=== PATIENT | male | born 2000 | race Caucasian/White ===

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

== ENCOUNTER 2022-09-12 06:57 | Emergency (ER) | payer MEDICAID, OTHER ==
--- NOTE | 2022-09-12 07:21 | ED Physician Documentation ---
PD HPI HEADACHE - Stated complaint Stated Complaint: RT HEAD PX/ - Chief complaint Chief Complaint: Neuro - History obtained from History obtained from: Patient - History of Present Illness Timing - onset: How many days ago (5) Timing - onset during: Light activity Timing - duration: Days (5) Timing - details: Gradual onset (onset while on computer right headache that worsened and lasted badly for 1-2 days, then eased, but has continued with "pokey" feeling right temporal area often.), Still present Worst headache ever?: No: Worst headache ever? Location: Right Quality: Aching, Stabbing Associated symptoms: Nausea. No: Fever, Stiff neck, Vomiting, Eye pain, Vision changes Improved by: No: Rest, Meds Worsened by: No: Light, Noise Contributing factors: No: Possible carbon monoxide, Recent illness, Trauma Similar symptoms before: Diagnosis (has had a few headaches in the past felt to be migraines. They go after few hours and sleep/some otC meds. Current one started similar but then persisted in a jabbing manner right temporal area. No rash, no sensitivity, no focal weakness nor trouble speaking.) Recently seen: Not recently seen Review of Systems Constitutional: denies: Fever, Chills Eyes: denies: Loss of vision, Decreased vision, Photophobia Ears: denies: Ear pain Nose: denies: Rhinorrhea / runny nose, Congestion, Sinus pressure / pain Throat: denies: Sore throat Respiratory: denies: Cough Skin: denies: Rash, Lesions Neurologic: reports: Headache. denies: Focal weakness, Numbness, Near syncope, Confused, Altered mental status PD PAST MEDICAL HISTORY - Past Medical History Cardiovascular: None Neuro: Migraines - Past Surgical History Past Surgical History: No - Present Medications Home Medications: Ambulatory Orders Medication Instructions Recorded Confirmed HYDROcod/ACETAM 5/325 [[place] 5/325] 1 ea PO Q6H PRN #12 tablet 09/12/22 HYDROcod/ACETAM 5/325 [[place] 5/325] 1 ea PO Q6H PRN #15 tablet 09/12/22 Ondansetron Odt [Zofran] 4 mg TL Q6H PRN #10 tablet 09/12/22 dexAMETHasone [Decadron] 4 mg PO DAILY #5 tablet 09/12/22 - Allergies Allergies/Adverse Reactions: Allergies Allergy/AdvReac Type Severity Reaction Status Date / Time No Known Drug Allergies Allergy Verified 09/12/22 07:12 - Social History Does the pt smoke?: No Smoking Status: Never smoker - Immunizations Immunizations are current?: Yes PD ED PE NORMAL - Vitals Vital signs reviewed: Yes - General General: Alert and oriented X 3, No acute distress, Well developed/nourished - HEENT HEENT: Atraumatic, PERRL, EOMI - Neck Neck: Supple, no meningeal sign, No adenopathy - Cardiac Cardiac: RRR, No murmur - Respiratory Respiratory: Clear bilaterally - Derm Derm: Normal color, Warm and dry - Neuro Neuro: Alert and oriented X 3, 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, No motor deficit, No sensory deficit, Normal speech, Other (normal gait) Results - Vitals Vitals: Vital Signs - 24 hr 09/12/22 09/12/22 07:06 09:11 Temperature 36.7 C Heart Rate 85 71 Respiratory 14 15 Rate Blood Pressure 129/77 132/83 H O2 Saturation 98 100 Oxygen O2 Source Room air - Rads (name of study) head cT Relevant Findings:: Prelim report reviewed (no acute findings), EMP independent interpretation of test, See rad report PD Medical Decision Making - ED course Complexity details: reviewed results, considered differential, d/w patient ED course: His pattern is not classic migraine but is one sided and without neuro deficit. However is prolonged and so shared decision is to get imaging cT. Does not seem meningitic and so considered but did not feel indicated a lumbar puncture. Labs did not seem useful with current history and exam. Given Toradol and Zofran for now as he is driving home. He has been hydrating so I did not feel iV fluids needed. He did have moderate improvement in symptoms. He is comfortable going home with scripts and follow up if not improved in 1-2 days. Dose of Decadron given for status migraine to try to keep it diminishing. Departure - Departure Disposition: 01 Home, Self Care Clinical Impression: Right-sided headache Condition: Stable Record reviewed to determine appropriate education?: Yes Instructions: ED Cephalgia Unspecified Prescriptions: dexAMETHasone [Decadron] 4 mg PO DAILY #5 tablet HYDROcod/ACETAM 5/325 [[place] 5/325] 1 ea PO Q6H PRN #12 tablet PRN Reason: Pain HYDROcod/ACETAM 5/325 [[place] 5/325] 1 ea PO Q6H PRN #15 tablet PRN Reason: Pain Ondansetron Odt [Zofran] 4 mg TL Q6H PRN #10 tablet PRN Reason: Nausea / Vomiting Comments: Your CT scan is normal without any signs of obvious structural abnormalities such as bleeding, swelling, tumors and your sinuses appear normal. At this point we will presume it is a functional headache such as a migraine that was persistent (status migraine). Hopefully the combination of the steroid along with some other pain medicine will decrease his through the day and have it better. Recheck if not improved completely over the next 1 to 2 days and return sooner if worsening. Ondansetron if needed for nausea. Continue the Decadron steroid for the next several days. Add Tylenol every 4-6 hours if needed for pain or hydrocodone if needed for worse pain. I sent your prescriptions to the [facility] pharmacy here in [place]. Apologize for the delay in getting your discharge as another patient came in that took my attention for a little bit. My narcotic instructions I am prescribing a short course of narcotic pain medication for you. These are potentially dangerous and addictive medications that should be used carefully. These medications may constipate you. Take an [id number] stool softener such as docusate twice daily with plenty of water while taking these medications. If you go 24 hours without a bowel movement, take [id number] MiraLAX, per package instructions. Do not drink or drive while taking these medications. If you received narcotic or sedating medications while in the emergency department do not drive for 24 hours. Store this medication in a safe, secure place and out of reach of children. It is a violation of federal law to give or sell this medication to another person or to use in a manner other than prescribed. The ED will not refill narcotic prescriptions, including prescriptions lost or stolen. You can dispose of unwanted medications at the [facility]'s office or at several pharmacies such as [facility]. Discharge Date/Time: 09/12/22 09:24
[2022-09-12] MEDS ORDERED: ACETAMINOPHEN 325 MG TABLET PO STA (07:44)
[2022-09-12] MEDS ORDERED: ONDANSETRON ODT 4 MG TABLET TL STA (07:45)
[2022-09-12] MEDS ORDERED: CHERRY SYRUP 10 ML UDC PO ONE (07:45)
[2022-09-12] MEDS ORDERED: DEXAMETHASONE 10 MG/ML VIAL PO STA (07:45)
--- NOTE | 2022-09-12 08:16 | CT Report ---
PROCEDURE: HEAD WO INDICATIONS: right sided AGUAYO for 5 days TECHNIQUE: Noncontrast 4.5 mm thick angled axial sections acquired from the foramen magnum to the vertex. For r adiation dose reduction, the following was used: automated exposure control, adjustment of mA and/or kV according to patient size. COMPARISON: None. FINDINGS: Image quality: Excellent. CSF spaces: Basal cisterns are patent. No extra-axial fluid collections. Ventricles are normal in size and shape. Brain: No midline shift. No intracranial masses or hemorrhage. Ace-white matter interface is norm al. Skull and face: Calvarium and visualized facial bones are intact, without suspicious lesions. Sinuses: Visualized sinuses and mastoids are clear. IMPRESSION: CT head without acute intracranial abnormalities or acute calvarial fractures. No eviden ce for mass or mass effect. Reviewed by: Junito Guerrero MD on 09/12/2022 8:14 AM PDT Approved by: Junito Guerrero MD on 09/12/2022 8:14 AM PDT Station ID: [id number]
[2022-09-12 09:23] VITALS: BP 132/83
== END 2022-09-12 09:24 | disposition home or self-care (01) ==
LOC: ED 06:57
DX: R51.9 Headache, unspecified (principal)
CPT/HCPCS: 70450; 99283; 99284; A9270; Q0162

== ENCOUNTER 2022-09-15 19:28 | Emergency (ER) | payer MEDICAID ==
--- NOTE | 2022-09-15 21:59 | ED Physician Documentation ---
PD HPI CHEST PAIN - Stated complaint Stated Complaint: TIGHT CHEST, IRREG HB - Chief complaint Chief Complaint: Cardiac - History obtained from History obtained from: Patient - History of Present Illness Recently seen: Emergency Dept - Additional information Additional information: HPI from patient. Patient complains of 2 days of episodic rapid palpitations. Initially, he felt that the palpitations were temporally related to a dose of Vicodin he had taken, but his last dose of Vicodin was 2 days ago (the day of onset of palpitations), but he has had more episodes of palpitations both yesterday and today. He says he has had some lightheadedness with the sensation of palpitations. This afternoon, he says he was at rest when he felt the rapid palpitations again start, his mother then applied apple watch to patient's wrist and noted heart rate was 130. Patient was treated and released from this emergency department 3 days ago for right retro-orbital headache, discharged after CT head was performed with unremarkable results. He was prescribed Decadron, Vicodin, and Zofran. Review of Systems Constitutional: denies: Fever Cardiac: reports: Palpitations. denies: Chest pain / pressure, Pedal edema, Calf pain Respiratory: reports: Reviewed and negative GI: reports: Reviewed and negative Neurologic: denies: Headache PD PAST MEDICAL HISTORY - Past Medical History Cardiovascular: None Neuro: Migraines Psych: Anxiety - Past Surgical History Past Surgical History: No - Present Medications Home Medications: Ambulatory Orders Medication Instructions Recorded Confirmed HYDROcod/ACETAM 5/325 [[place] 5/325] 1 ea PO Q6H PRN #12 tablet 09/12/22 HYDROcod/ACETAM 5/325 [[place] 5/325] 1 ea PO Q6H PRN #15 tablet 09/12/22 Ondansetron Odt [Zofran] 4 mg TL Q6H PRN #10 tablet 09/12/22 dexAMETHasone [Decadron] 4 mg PO DAILY #5 tablet 09/12/22 - Allergies Allergies/Adverse Reactions: Allergies Allergy/AdvReac Type Severity Reaction Status Date / Time No Known Drug Allergies Allergy Verified 09/15/22 19:58 - Social History Does the pt smoke?: No Smoking Status: Never smoker Does the pt drink ETOH?: No Does the pt have substance abuse?: No - Immunizations Immunizations are current?: Yes - POLST Patient has POLST: No PD ED PE NORMAL - Vitals Vital signs reviewed: Yes - General General: Alert and oriented X 3, No acute distress, Well developed/nourished - Cardiac Cardiac: RRR, No murmur, No gallop, No rub - Respiratory Respiratory: No respiratory distress, Clear bilaterally Results - Vitals Vitals: Vital Signs - 24 hr 09/15/22 09/15/22 19:58 23:18 Temperature 36.5 C Heart Rate 96 68 Respiratory 16 18 Rate Blood Pressure 137/100 H 121/81 H O2 Saturation 96 96 Oxygen O2 Source Room air - Labs Labs: Laboratory Tests 09/15/22 09/15/22 22:23 22:23 WBC 14.5 H RBC 5.17 Hgb 15.5 Hct 46.3 MCV 89.6 MCH 30.0 MCHC 33.5 RDW 11.8 L Plt Count 322 MPV 9.9 Neut # (Auto) 8.9 H Lymph # (Auto) 4.2 H [place] # (Auto) 1.2 H Eos # (Auto) 0.1 Baso # (Auto) 0.0 Absolute Nucleated RBC 0.00 Nucleated RBC % 0.0 Sodium 137 Potassium 3.3 L Chloride 100 L Carbon Dioxide 25 Anion Gap 12.0 BUN 19 Creatinine 0.7 Estimated GFR (MDRD) 144 Glucose 91 Calcium 9.7 PD Medical Decision Making - ED course Complexity details: reviewed old records (Reviewed CT head results from previous, recent ED visit.), reviewed results, re-evaluated patient, considered differential, d/w patient ED course: Patient did not have any dysrhythmia during ED visit while on the hospital monitor (I reviewed the telemetry metric recording prior to discharge).There were no diagnostic nor concerning findings on CBC, basic metabolic profile. He has a mildly elevated white blood cell count which is not a concerning nor contributory finding for this patient's chief complaint, HPI, and physical exam. He has mild hypokalemia with a potassium of 3.3. This is not low enough to realistically be a causative factor although could be contributory to paroxysmal dysrhythmias; he is given 20 mill equivalents of potassium chloride orally prior to discharge. Results were discussed with the patient, return precautions reviewed. Advised him to follow-up with his primary care provider for reevaluation. Departure - Departure Disposition: 01 Home, Self Care Clinical Impression: Palpitations, Hypokalemia Condition: Good Instructions: ED Potassium Deficiency, ED Palpitations Comments: There were no concerning or diagnostic findings on your blood test tonight. As we discussed, you had a mildly elevated white blood cell count which is a nonspecific finding and, in the setting of your symptoms, is an incidental finding. Your potassium level was a little bit below the normal range (your potassium level was 3.3, the low end of normal is 3.5). While a low potassium can cause cardiac symptoms including palpitations, it is unlikely that this caused your palpitations, as it is not low enough to realistically attribute symptoms to. You were given a dose of potassium orally prior to discharge. As we discussed, you should follow-up with a general practitioner for reevaluation of your symptoms, possible referrals for your symptoms, and your primary care provider might recommend repeating the potassium level to check that it has normalized. Discharge Date/Time: 09/15/22 23:27
[2022-09-15 22:30] LABS: BASOPHILS % (AUTO) 0.3 %; EOSINOPHILS # (AUTO) 0.1 10^3/uL (0.0-0.7); EOSINOPHILS % (AUTO) 0.7 %; HCT - HEMATOCRIT 46.3 % (42.0-52.0); HGB - HEMOGLOBIN 15.5 g/dL (14.0-18.0); LYMPHOCYTES # (AUTO) 4.2 10^3/uL (1.5-3.5); MEAN CORPUSCULAR HGB CONC 33.5 g/dL (32.0-36.0); MEAN CORPUSCULAR VOLUME 89.6 fL (80.0-94.0); MEAN PLATELET VOLUME 9.9 fL (7.4-11.4); MONOCYTES # (AUTO) 1.2 10^3/uL (0.0-1.0); MONOCYTES % (AUTO) 8.4 %; NEUTROPHILS # (AUTO) 8.9 10^3/uL (1.5-6.6); NEUTROPHILS % (AUTO) 61.1 %; PLT - PLATELET COUNT 322 10^3/uL (130-450); RED BLOOD COUNT 5.17 10^6/uL (4.70-6.10); RED CELL DISTRIBUTION WIDTH 11.8 % (12.0-15.0); WHITE BLOOD COUNT 14.5 x10^3/uL (4.8-10.8)
[2022-09-15 22:41] LABS: CALCIUM 9.7 mg/dL (8.5-10.3); CREATININE 0.7 mg/dL (0.6-1.2); POTASSIUM 3.3 mmol/L (3.5-5.0)
[2022-09-15 23:19] VITALS: BP 121/81
[2022-09-15] MEDS ORDERED: POTASSIUM CHLORIDE 20 MEQ TABLET PO STA (23:19)
== END 2022-09-15 23:27 | disposition home or self-care (01) ==
LOC: ED 19:28
DX: R00.2 Palpitations (principal); E87.6 Hypokalemia
CPT/HCPCS: 36415; 80048; 85025; 93005; 99284; A9270

== ENCOUNTER 2022-09-19 10:25 | Outpatient (CLI) | payer MEDICAID ==
[2022-09-19 10:44] LABS: BASOPHILS # (AUTO) 0.1 10^3/uL (0.0-0.1); BASOPHILS % (AUTO) 0.8 %; EOSINOPHILS # (AUTO) 0.3 10^3/uL (0.0-0.7); EOSINOPHILS % (AUTO) 2.5 %; HCT - HEMATOCRIT 43.1 % (42.0-52.0); HGB - HEMOGLOBIN 14.7 g/dL (14.0-18.0); LYMPHOCYTES # (AUTO) 3.6 10^3/uL (1.5-3.5); LYMPHOCYTES % (AUTO) 34.2 %; MEAN CORPUSCULAR HEMOGLOBIN 30.4 pg (27.0-31.0); MEAN CORPUSCULAR HGB CONC 34.1 g/dL (32.0-36.0); MEAN PLATELET VOLUME 10.2 fL (7.4-11.4); MONOCYTES # (AUTO) 0.8 10^3/uL (0.0-1.0); MONOCYTES % (AUTO) 7.9 %; NEUTROPHILS # (AUTO) 5.7 10^3/uL (1.5-6.6); NEUTROPHILS % (AUTO) 53.8 %; PLT - PLATELET COUNT 291 10^3/uL (130-450); RED BLOOD COUNT 4.84 10^6/uL (4.70-6.10); RED CELL DISTRIBUTION WIDTH 11.9 % (12.0-15.0); WHITE BLOOD COUNT 10.6 x10^3/uL (4.8-10.8)
[2022-09-19 11:02] LABS: ALBUMIN 4.4 g/dL (3.2-5.5); ALBUMIN/GLOBULIN RATIO 1.2 (1.0-2.2); ALKALINE PHOSPHATASE 53 IU/L (42-121); ALT ALANINE AMINOTRANSFERASE 10 IU/L (10-60); AST ASPARTATE AMINOTRANSFERASE 14 IU/L (10-42); BILIRUBIN,TOTAL 0.5 mg/dL (0.2-1.0); BUN - BLOOD UREA NITROGEN 10 mg/dL (6-20); CALCIUM 9.7 mg/dL (8.5-10.3); CARBON DIOXIDE - CO2 28 mmol/L (21-32); CHLORIDE 102 mmol/L (101-111); CHOL/HDL RATIO 7.2 (<5.0); CHOLESTEROL 239 mg/dL; CREATININE 0.7 mg/dL (0.6-1.2); GFR - MDRD 144 (>89); GLUCOSE 102 mg/dL (70-100); HDL CHOLESTEROL 33 mg/dL; LDL CHOLESTEROL,CALCULATED 194 mg/dL; LDL/HDL RATIO 5.9 (<3.6); POTASSIUM 3.5 mmol/L (3.5-5.0); SODIUM 139 mmol/L (135-145); TOTAL PROTEIN 8.1 g/dL (6.7-8.2); TRIGLYCERIDES 59 mg/dL; VLDL CHOLESTEROL 12 mg/dL
[2022-09-19 11:13] LABS: THYROID STIMULATING HORMONE 1.43 uIU/mL (0.34-5.60)
== END 2022-09-19 10:26 | disposition home or self-care (01) ==
LOC: LAB 10:25
PROVIDERS: ATTEND Physician Assistant
DX: Z00.00 Encounter for general adult medical examination without abnormal findings (principal); E78.5 Hyperlipidemia, unspecified; Z13.29 Encounter for screening for other suspected endocrine disorder
CPT/HCPCS: 36415; 80053; 80061; 83721; 84443; 85025